=== PATIENT | male | born 1940 | race Caucasian/White ===

== ENCOUNTER 2021-09-26 09:16 | Outpatient (CLI) | payer MEDICARE, OTHER | END 2021-09-26 09:17 | disposition home or self-care (01) | LOC: CSHWCC 09:16 | PROVIDERS: ATTEND Nurse Practitioner Family | DX: I87.332 Chronic venous hypertension (idiopathic) with ulcer and inflammation of left lower extremity (principal); L97.822 Non-pressure chronic ulcer of other part of left lower leg with fat layer exposed; R60.0 Localized edema | CPT/HCPCS: 29581; 97139; G0463; 99213 ==

== ENCOUNTER 2021-09-30 10:15 | Outpatient (CLI) | payer MEDICARE, OTHER | END 2021-09-30 10:16 | disposition home or self-care (01) | LOC: CSHWCC 10:15 | PROVIDERS: ATTEND Nurse Practitioner Family | DX: I87.332 Chronic venous hypertension (idiopathic) with ulcer and inflammation of left lower extremity (principal); L97.829 Non-pressure chronic ulcer of other part of left lower leg with unspecified severity; R60.0 Localized edema ==

== ENCOUNTER 2021-11-18 09:57 | Outpatient (CLI) | payer MEDICARE, OTHER | END 2021-11-18 09:58 | disposition home or self-care (01) | LOC: CSHWCC 09:57 | PROVIDERS: ATTEND Nurse Practitioner Family | DX: I87.332 Chronic venous hypertension (idiopathic) with ulcer and inflammation of left lower extremity (principal); L97.822 Non-pressure chronic ulcer of other part of left lower leg with fat layer exposed; R60.0 Localized edema | CPT/HCPCS: 29581 ==

== ENCOUNTER 2021-11-21 09:50 | Outpatient (CLI) | payer MEDICARE, OTHER | END 2021-11-21 09:51 | disposition home or self-care (01) | LOC: CSHWCC 09:50 | PROVIDERS: ATTEND Nurse Practitioner Family | DX: I87.332 Chronic venous hypertension (idiopathic) with ulcer and inflammation of left lower extremity (principal); L97.822 Non-pressure chronic ulcer of other part of left lower leg with fat layer exposed; R60.0 Localized edema | CPT/HCPCS: 29581 ==

== ENCOUNTER 2021-11-28 10:18 | Outpatient (CLI) | payer MEDICARE, OTHER | END 2021-11-28 10:19 | disposition home or self-care (01) | LOC: CSHWCC 10:18 | PROVIDERS: ATTEND Nurse Practitioner Family | DX: I87.332 Chronic venous hypertension (idiopathic) with ulcer and inflammation of left lower extremity (principal); L97.822 Non-pressure chronic ulcer of other part of left lower leg with fat layer exposed; R60.0 Localized edema ==

== ENCOUNTER 2021-12-05 11:28 | Outpatient (CLI) | payer MEDICARE, OTHER | END 2021-12-05 11:29 | disposition home or self-care (01) | LOC: CSHWCC 11:28 | PROVIDERS: ATTEND Nurse Practitioner Family | DX: S81.802D Unspecified open wound, left lower leg, subsequent encounter (principal); I87.332 Chronic venous hypertension (idiopathic) with ulcer and inflammation of left lower extremity; L97.822 Non-pressure chronic ulcer of other part of left lower leg with fat layer exposed; R60.0 Localized edema ==

== ENCOUNTER 2021-12-12 11:21 | Outpatient (CLI) | payer MEDICARE, OTHER | END 2021-12-12 11:22 | disposition home or self-care (01) | LOC: CSHWCC 11:21 | PROVIDERS: ATTEND Nurse Practitioner Family | DX: R60.0 Localized edema (principal) ==

== ENCOUNTER 2022-01-02 10:28 | Outpatient (CLI) | payer MEDICARE, OTHER | END 2022-01-02 10:29 | disposition home or self-care (01) | LOC: CSHWCC 10:28 | PROVIDERS: ATTEND Nurse Practitioner Family | DX: R60.0 Localized edema (principal) | CPT/HCPCS: 99213; G0463 ==